=== PATIENT | female | born 1955 | race Caucasian/White ===

== ENCOUNTER → 2017-11-26 | Outpatient (CLI) | payer OTHER ==
[2016-09-16 10:09] VITALS: BMI 32.3
[~2017-11-26] MED LIST: ALOE VERA PO; ASCO-182 PO; ASPI-715 PO; CHOL10005 PO; GEMF600T91 PO; IBUP600T22 PO; LEVO112T43 PO; LISI-1 PO; LOR5/325 PO; MULT-1335 PO; OXYC-865 PO; SIMV-44 PO
[2017-11-26 06:40] LABS: PLATELET COUNT, AUTOMATED 227 K/uL (150-450)
[2017-11-26 06:59] LABS: LDL CHOLESTEROL 100 mg/dl
== END ==
LOC: LAB 06:18
PROVIDERS: ATTEND Nurse Practitioner Psychiatric/Mental Health
DX: Z00.00 Encounter for general adult medical examination without abnormal findings (principal)
CPT/HCPCS: 36415; 82040; 82247; 82310; 82374; 82435; 82465; 82565; 82947; 83036; 83718; 84075; 84132; 84155; 84295; 84443; 84450; 84460; 84478; 84520; 85025

== ENCOUNTER 2018-03-02 15:15 | Outpatient (RCR) | payer OTHER ==
[2016-09-16 10:09] VITALS: BMI 32.3
--- NOTE | 2018-02-22 14:17 | PT INITIAL EVALUATION ---
MEDICAL DIAGNOSIS: low back pain TREATMENT DIAGNOSIS: same DATE OF ONSET: 02/14/18 SUBJECTIVE: Giulia Griffin presents to physical therapy with complaints of low back pain with radiating pain down her L LE that started approximately 2 weeks ago, as a result, of lifting heavy trash while twisting. She reports that the standing, bending, and walking makes her pain worse. She also reports that sitting and lying alleviates her pain. She reports that when she walks a lot that pain with radiate from her L hip down into her L ankle/foot and rates her pain to be 4/10. Otherwise, while she is resting, she rates her pain to be 1/ 10. Furthermore, she reports that it feels better with her cream and ibuprofen. She denies increased pain with coughing, sneezing, and straining. She denies any changes in bladder or gait. She denies any night pain, unexplained weight loss, recent or major surgery, or accidents. She reports that her pain does not seem to change with the correction of her posture. She denies any tingling or changes in core or B LE strength. Pain location is surrounding L PSIS and described as achy. Pain scale is 1 on a ten point pain scale. REHAB PROBLEM LIST: Increased Pain Decreased ROM Decreased Strength Decreased Function Decreased ADL's PREVIOUS MEDICAL HISTORY: See EMR OCCUPATION: [employer] OBJECTIVE: Posture: She demonstrates B rounded shoulders, increased thoracic kyphosis, and decreased lumbar lordosis. ROM: Trunk AROM: flexion: NIL with muscular end feel. extension: NIL with muscular end feel. side gliding R: NIL with muscular end feel. side gliding L: minimal restriction with painful end feel. Strength: core, B hip abduction, extension, B knee flexion, and B DF: 4+/5. B hip adduction, B knee extension, B ankle PF: 5/5 Palpation: TTP: surrounding L PSIS Sensation: Intact L2-S2 Special Tests: Repeated extension: stretch sensation during the test and worse following the test with decreased AROM. Repeated flexion: stretch sensation during the test and same/worse following the test. Repeated R side gliding: stretch sensation during the test and better following the test with increased trunk AROM in all directions with normal end feels Mobility: Independent Gait: Normal gait mechanics ASSESSMENT: Giulia will benefit from skilled physical therapy to address the listed impairments to improve function and return to prior level of function. Her provisional classification is lateral derangement that responded well to R side gliding (lateral movement) to abolish her low back pain and improve trunk AROM in all directions. Short Term Goals 1 week: Pt will be independent with her specific exercise to improve function and QOL. 2 weeks: Pt will demonstrate centralized low back pain to improve function and QOL. 4 weeks: Pt will demonstrated abolished low back pain and return to prior level of function to improve function and QOL. Patient's Goals get rid of this low back pain PLAN: Patient to be seen for Manual Therapy/STM/MET Strengthening/condition Range of Motion Spinal Stabilization Work Hardening/Cond Stretching Neuromuscular Re-ed Closed Chain Program Posture/Body mechanics Gait Trg/Balance Trg Home Exercise Program Therapeutic Activities 2x/Week for 4 Weeks If you have any questions, comments, or concerns about this report or plan, please contact me at . Thank you, Montana Rose, PT, DPT [facility]
--- NOTE | 2018-03-02 15:49 | PT PLAN OF CARE ---
Physician: JAMAAL Ruiz Patient is being seen: 2x/week Therapist: Montana Rose, PT, DPT Medical Diagnosis: low back pain Treatment Diagnosis: same Date of Onset: 02/14/18 Date of Initial Evaluation: 02/21/18 Date patient was last seen: 03/02/18 Number of treatments: 4 Number of cancellations/No shows: 0 INTERVENTIONS: Manual Therapy/STM/MET Strengthening/condition Range of Motion Spinal Stabilization Work Hardening/Cond Stretching Neuromuscular Re-ed Closed Chain Program Posture/Body mechanics Gait Trg/Balance Trg Home Exercise Program Therapeutic Activities GOALS: 1 week: Pt will be independent with her specific exercise to improve function and QOL.MET 2 weeks: Pt will demonstrate centralized low back pain to improve function and QOL. MET 4 weeks: Pt will demonstrated abolished low back pain and return to prior level of function to improve function and QOL. MET PATIENT'S GOAL: get rid of this low back pain: MET Status of Patient's Goals: MET Patient Compliance: Excellent Prognosis: Excellent Reasons for discontinuing therapy: This is a discharge note for Giulia Griffin. She reports that she is doing well. She reports that she has returned to prior level of function with 0/10 low back pain. She reports that she has not had any back pain since last Tuesday. She reports that she feels confident that she can continue to perform her specific exercise and reduce reoccurrences. She has progressed well within PT with the following improvements: abolished low back pain, return to full trunk AROM in all directions, and return to prior level of function with abolished low back pain. She has met all of her goals. She has received the education to prevent reoccurrences. As a result, she will be discharged from PT. Posture: She demonstrates B rounded shoulders, increased thoracic kyphosis, and decreased lumbar lordosis. ROM: Trunk AROM: flexion: NIL with muscular end feel. extension: NIL with muscular end feel. side gliding R: NIL with muscular end feel. side gliding L: NIL with muscular end feel. Strength: core, B hip abduction, extension, B knee flexion, and B DF: 5/5. B hip adduction, B knee extension, B ankle PF: 5/5 Palpation: TTP: surrounding L PSIS Special Tests: Repeated extension: stretch sensation during the test and worse following the test with decreased AROM. Repeated flexion: stretch sensation during the test and same/worse following the test. Repeated R side gliding: stretch sensation during the test and better following the test with increased trunk AROM in all directions with normal end feels Mobility: Independent If you have any questions, please contact me at [phone]. Thank you, Montana Rose, PT, DPT [facility]
== END 2018-03-02 18:00 | disposition home or self-care (01) ==
LOC: PT 15:15
PROVIDERS: ATTEND Nurse Practitioner Psychiatric/Mental Health
DX: M54.16 Radiculopathy, lumbar region (principal)
CPT/HCPCS: 97161

== ENCOUNTER → 2019-01-17 | Outpatient (CLI) | payer OTHER ==
[2016-09-16 10:09] VITALS: BMI 32.3
[~2019-01-17] MED LIST changes: +CLOB15OI16 TP; +ESTR42.5 PV; +KETC15T TP; +NYST15PO12 TP
[2019-01-17 06:54] LABS: PLATELET COUNT, AUTOMATED 229 K/uL (150-450)
[2019-01-17 07:07] LABS: LDL CHOLESTEROL 87 mg/dl
== END ==
LOC: LAB 06:35
PROVIDERS: ATTEND Nurse Practitioner Psychiatric/Mental Health
DX: Z00.00 Encounter for general adult medical examination without abnormal findings (principal)
CPT/HCPCS: 36415; 82040; 82247; 82310; 82374; 82435; 82465; 82565; 82947; 83036; 83718; 84075; 84132; 84155; 84295; 84443; 84450; 84460; 84478; 84520; 85025

== ENCOUNTER → 2019-04-25 | Outpatient (CLI) | payer OTHER ==
[2016-09-16 10:09] VITALS: BMI 32.3
== END ==
LOC: LAB 13:47
PROVIDERS: ATTEND Nurse Practitioner Family
DX: I10 Essential (primary) hypertension (principal)
CPT/HCPCS: 36415; 82310; 82374; 82435; 82565; 82947; 84132; 84295; 84520

== ENCOUNTER 2019-06-29 00:56 | Emergency (ER) | payer OTHER ==
[2016-09-16 10:09] VITALS: Wt 70.3 kg
[2019-06-29 01:00] VITALS: BP 173/112
[2019-06-29] MEDS ORDERED: LISI30TA49 PO (01:05)
[2019-06-29] MEDS ORDERED: METF-450 PO (01:05)
--- NOTE | 2019-06-29 01:07 | ER Report ---
History and Physical Time Seen By MD: 00:56 HPI/ROS CHIEF COMPLAINT: Rash on neck and upper chest HISTORY OF PRESENT ILLNESS: 64-year-old female with a rash on her upper chest and neck. Patient was out camping. She does denies being exposed to poison henny or poison oak. She notes a burning itching sensation to this rash area. She's tried hydrocortisone 1% [id number] as well as Neosporin on the rash without improvement. She's had the rash nearly 2 days now. Beginning much worse. There is gross edema. Looking at her chest. Patient denies fever or chills. Patient denies insect bites. Allergies: Coded Allergies: No Known Drug Allergies (Verified , 06/29/19) Home Meds Active Scripts Ibuprofen (IBUPROFEN) 600 Mg Tablet, 1 TAB PO Q8H PRN for pain, #30 TAB 0 Refills TAKE WITH FOOD EVERY 6 HOURS Prov:ALEX ROYAL MD 09/15/16 Reported Medications Metformin Hcl (METFORMIN HCL) 500 Mg Tablet, 1 TAB PO BID, TAB 06/29/19 Lisinopril (LISINOPRIL) 30 Mg Tablet, 30 MG PO QDAY 06/29/19 Multivitamin With Minerals (MULTIPLE VITAMIN) 1 Each Tablet, 1 EACH PO QDAY, TAB 09/10/16 Ascorbic Acid (VITAMIN C) 500 Mg Tablet, 1 MG PO QDAY, TAB 09/10/16 Levothyroxine Sodium (Levothyroxine Sodium) 112 Mcg Tablet, 100 MCG PO QDAY, 0 Refills 11/30/10 Discontinued Reported Medications Lisinopril (Lisinopril) 5 Mg Tablet, 5 MG PO QDAY, 0 Refills 11/30/10 Discontinued Scripts Clobetasol Propionate (CLOBETASOL PROPIONATE) 15 Gm Oint...g., 1 VINCENT TP BID for 30 Days, #1 TUBE 0 Refills Apply topically to vulva as directed Please call to schedule annual exam. Prov:ALEX ROYAL MD 06/15/19 Estrogens, Conjugated (Premarin) 0.625 Mg/Gram Cream.appl, 0.5 GM PV 2XW for 30 Days, #1 TUBE 4 Refills Prov:ALEX ROYAL MD 04/11/18 Reviewed Nurses Notes: Yes Old Medical Records Reviewed: Yes Hx Smoking: No (2-3 CIG/DAY OFF AND ON FOR MANY YEARS. QUIT 2010) Smoking Status: Never Smoker Exposure to Second Hand Smoke?: No Hx Substance Use Disorder: No Hx Alcohol Use: Yes Constitutional Vital Sign - Last 24 Hours 06/29/19 06/29/19 06/29/19 06/29/19 00:57 01:00 01:00 01:11 Temp 98.0 Pulse 74 72 Resp 18 B/P (MAP) 195/105 (135) 195/105 173/112 (132) Pulse Ox 95 93 O2 Delivery Room Air Physical Exam General appearance: Alert no distress. Respiratory: Chest is non tender, lungs are clear to auscultation. Cardiac: Regular rate and rhythm Skin: Examination of the upper chest reveals gross erythema and edema to the tissues. Extends partially into the neck. There are some small petechiae on the neck. There is no lymphadenopathy. DIFFERENTIAL DIAGNOSIS: After history and physical exam differential diagnosis was considered for cellulitis, allergic reaction, contact dermatitis, Medical Decision Making ED Course/Re-evaluation ED Course Patient was admitted to an examination room. H&P was done. The differential diagnoses was considered. On conical examination, patient appears to have symptomatically and clinically looks like a contact dermatitis. Patient's dispensed a tube of for triamcinolone 0.5% cream. She is advised to apply twice a day and take Benadryl for the itching. She is advised to follow-up with primary care if unimproved in 5-7 days. Decision to Disposition Date: Jun 29, 2019 Decision to Disposition Time: 01:11 Depart Departure Latest Vital Signs Vital Signs Date Time Temp Pulse Resp B/P (MAP) Pulse Ox O2 Delivery O2 Flow Rate FiO2 06/29/19 01:11 72 93 06/29/19 01:00 173/112 (132) 06/29/19 01:00 98.0 18 Room Air Impression: Primary Impression: Contact dermatitis Condition: Improved Disposition: HOME OR SELF-CARE Patient Instructions: Contact Dermatitis (ED) Additional Instructions: Take Benadryl 25 mg for itching every 6-8 hours as needed Apply triamcinolone cream 0.5% twice daily to the affected area Follow-up with your primary care if unimproved in 5-7 days Problem Qualifiers Primary Impression: Contact dermatitis Contact dermatitis type: allergic Contact dermatitis trigger: unspecified trigger Qualified Codes: L23.9 - Allergic contact dermatitis, unspecified cause ELIZABET STEWART DO Jun 29, 2019 01:07
[2019-06-29] MEDS ORDERED: TRIAMCINOLONE ACE 0.5% CR 15GM TP SCH ×2 (01:10→01:25)
[2019-06-29] MEDS ORDERED: TRIAMCINOLONE ACE 0.5% CR 15GM TP ONE (01:21)
== END 2019-06-29 01:28 | disposition home or self-care (01) ==
LOC: ER 00:56
DX: L23.9 Allergic contact dermatitis, unspecified cause (principal)
CPT/HCPCS: 99282